=== PATIENT | male | born 1960 | race Caucasian/White ===

== ENCOUNTER 2018-09-12 01:55 | Observation (INO) | payer OTHER ==
[2018-09-12 02:31] LABS: AADO2 Arterial 113.6 mmHg (7.0-24.0); Allen Test ACCEPTAB; Arterial Base Excess 0.8 mmol/L (-3.0-3); Arterial Blood Gas Oxygen Sat 89.7 mmHG (95.0-98.0); Arterial COHb 0.7 % (0.0-3.0); Arterial Fraction of Oxyhgb 89.1 % (93.0-99.0); Arterial HCO3 24.9 mmol/L (22.0-26.0); Arterial MetHb 0 % (0.0-1.5); Arterial pCO2 37.6 mmhg (35-45); MODE NASAL CANNULA; Site Right Radial
[2018-09-12] MEDS: IPRATROPIUM (NEB) 0.5 MG/2.5 ML AMP INH (02:35)
[2018-09-12] MEDS: ALBUTEROL 0.5% (NEB) 2.5 MG/0.5 ML AMP INH (02:36)
[2018-09-12 02:51] LABS: ADD MAN DIFF? NO
[2018-09-12] MEDS: METHYLPREDNISOLONE 125 MG INJ IV ×3 (02:51→18:16)
[2018-09-12] MEDS: SOD CHLORIDE 0.9% 500 ML IV (02:51)
[2018-09-12 02:52] LABS: BASOPHILS % 0.3 % (0.0-2.0); EOSINOPHILS # 0.3 10^3/ul (0.0-0.5); EOSINOPHILS % 2.4 % (0.0-7.0); HEMOGLOBIN 7.2 g/dl (14.0-18.0); LYMPHOCYTES # 4.6 10^3/ul (0.8-2.9); LYMPHOCYTES % 32.5 % (15.0-51.0); MEAN CORPUSCULAR HEMOGLOBIN 30.6 pg (29.0-33.0); MEAN CORPUSCULAR HGB CONC 32.7 g/dl (32.0-37.0); MEAN CORPUSCULAR VOLUME 93.6 fl (82.0-101.0); MEAN PLATELET VOLUME 9.9 fl (7.4-10.4); MONOCYTE # 0.7 10^3/ul (0.3-0.9); MONOCYTES % 5.2 % (0.0-11.0); NEUTROPHIL # 8.3 10^3/ul (1.6-7.5); NEUTROPHILS % 59.1 % (39.0-77.0); PLATELET COUNT 276 10^3/UL (140-415); RED BLOOD COUNT 2.35 10^6/ul (4.70-6.10); RED CELL DISTRIBUTION WIDTH 13.9 % (11.5-14.5)
[2018-09-12 03:11] LABS: INR 0.93; PROTIME 12.5 Sec (11.9-14.9)
[2018-09-12 03:12] LABS: ALANINE AMINOTRANSFERASE 23 IU/L (13-69); ALBUMIN 3.4 g/dl (3.3-4.9); ALBUMIN/GLOBULIN RATIO 1.17; ALKALINE PHOSPHATASE 98 IU/L (42-121); ANION GAP 8 (5-13); ASPARTATE AMINO TRANSFERASE 26 IU/L (15-46); BILIRUBIN,INDIRECT 0.2 mg/dl (0-1.1); BILIRUBIN,TOTAL 0.2 mg/dl (0.2-1.3); BLOOD UREA NITROGEN 40 mg/dl (7-20); CALCIUM 8.4 mg/dl (8.4-10.2); CARBON DIOXIDE 26 mmol/L (21-31); CHLORIDE 107 mmol/L (97-110); CREATININE 2.55 mg/dl (0.61-1.24); Estimated GFR 26 mL/min (>60); GLUCOSE 174 mg/dl (70-220); PARTIAL THROMBOPLASTIN TIME 33.9 Sec (23.0-35.0); POTASSIUM 4.8 mmol/L (3.5-5.1); SODIUM 141 mmol/L (135-144); TOTAL PROTEIN 6.3 g/dl (6.1-8.1)
[2018-09-12 03:25] LABS: B-TYPE NATRIURETIC PEPTIDE 4390 PG/ML (0-125); TROPONIN-I 0.017 ng/ml (0.000-0.120)
[2018-09-12] MEDS ORDERED: AMLODIPINE 5 MG TAB PO (07:00)
[2018-09-12] MEDS ORDERED: GLUCOSE GEL 15 GRAM TUBE PO ×2 (08:00)
[2018-09-12] MEDS ORDERED: DEXTROSE 50% 50 ML SYRINGE IV ×2 (08:00)
[2018-09-12] MEDS ORDERED: GLUCAGON 1 MG INJ IM (08:00)
[2018-09-12] MEDS ORDERED: GLUCOSE GEL 15 GRAM TUBE BUCCAL (08:00)
[2018-09-12] MEDS: AZITHROMYCIN 500MG/NS (PMX) 250 ML IV (08:27)
[2018-09-12] MEDS: CEFTRIAXONE 1 GM/50 ML (PMX) 50 ML IVPB (08:29)
[2018-09-12] MEDS: ASPIRIN 81 MG TAB PO (08:30)
[2018-09-12] MEDS: LOSARTAN 50 MG TAB PO (08:30)
[2018-09-12] MEDS: INSULIN ASPART [NOVOLOG] 3 ML PEN SC ×3 (09:39→17:17)
[2018-09-12 12:59] LABS: IRON 29 ug/dl (35-150)
[2018-09-12 13:08] LABS: % IRON SATURATION 10 % SAT (22-52); TOTAL IRON BINDING CAPACITY 277 ug/dl (241-421)
[2018-09-12 13:16] LABS: FREE T4 (FREE THYROXINE) 1.24 ng/dl (0.64-1.79)
[2018-09-12] MEDS: HEPARIN 5,000 UNIT/1 ML VIAL SC ×2 (14:00→22:04)
[2018-09-12] MEDS ORDERED: HEPARIN 5,000 UNIT/0.5 ML VIAL (14:05)
[2018-09-12] MEDS: LINAGLIPTIN 5 MG TABLET PO (14:08)
[2018-09-12] MEDS: TIOTROPIUM 18 MCG CAPSULE INHA DEV INH (14:09)
[2018-09-12 14:36] LABS: HEMOGLOBIN A1C 7.1 % (0-5.9)
[2018-09-12 14:47] LABS: CREATINE KINASE 271 IU/L (23-200)
[2018-09-12 15:00] LABS: CK INDEX 0.8; CK-MB 2.04 ng/ml (0.0-2.4); TROPONIN-I < 0.012 ng/ml (0.000-0.120)
[2018-09-12] MEDS: ACCU-CHEK XX ×2 (17:18→21:45)
[2018-09-12 17:40] LABS: FOLATE 6.6 ng/ml (2.8-20.0)
[2018-09-12 19:25] LABS: CREATINE KINASE 258 IU/L (23-200)
[2018-09-12 19:39] LABS: CK INDEX 0.7; CK-MB 1.89 ng/ml (0.0-2.4); TROPONIN-I < 0.012 ng/ml (0.000-0.120)
[2018-09-12] MEDS ORDERED: INSULIN GLARGINE [LANTus] (100 UNITS/ML) SYG SC (20:00)
[2018-09-12] MEDS: ALBUTEROL/IPRATROPIUM (NEB) 3 ML AMP NEB (20:20)
[2018-09-12] MEDS ORDERED: INSULIN ASPART [NOVOLOG] 3 ML PEN SC (21:00)
[2018-09-12] MEDS: ATORVASTATIN 20 MG TAB PO (21:46)
[2018-09-12] MEDS: Insulin NOVOLOG SS MODERATE Algorithm(NPO/TPN/ENTERAL FEEDS) SC (22:04)
[2018-09-12] MEDS: INSULIN GLARGINE [LANTus] (100 UNITS/ML) SYG SC (22:05)
[2018-09-13] MEDS: LABETALOL HCL 20MG INJ IV ×2 (00:35→04:18)
[2018-09-13] MEDS: METHYLPREDNISOLONE 125 MG INJ IV ×3 (00:37→11:08)
[2018-09-13] MEDS: Insulin NOVOLOG SS MODERATE Algorithm(NPO/TPN/ENTERAL FEEDS) SC ×4 (00:44→12:12)
[2018-09-13] MEDS: ALBUTEROL/IPRATROPIUM (NEB) 3 ML AMP NEB (00:51)
[2018-09-13] MEDS: ACCU-CHEK XX ×3 (01:03→11:07)
[2018-09-13] MEDS: CEFTRIAXONE 1 GM/50 ML (PMX) 50 ML IVPB (04:19)
[2018-09-13] MEDS: HEPARIN 5,000 UNIT/1 ML VIAL SC (05:33)
[2018-09-13 05:47] LABS: ADD MAN DIFF? NO
[2018-09-13 05:54] LABS: BASOPHILS % 0.1 % (0.0-2.0); HEMATOCRIT 24.1 % (42.0-52.0); HEMOGLOBIN 7.7 g/dl (14.0-18.0); LYMPHOCYTES # 4.1 10^3/ul (0.8-2.9); MEAN CORPUSCULAR HEMOGLOBIN 30.1 pg (29.0-33.0); MEAN CORPUSCULAR VOLUME 94.1 fl (82.0-101.0); MEAN PLATELET VOLUME 11.1 fl (7.4-10.4); MONOCYTE # 0.3 10^3/ul (0.3-0.9); MONOCYTES % 1.6 % (0.0-11.0); NEUTROPHIL # 12.6 10^3/ul (1.6-7.5); NEUTROPHILS % 73.8 % (39.0-77.0); NUCLEATED RED BLOOD CELLS% 0.1 /100WBC (0.0-0.0); PLATELET COUNT 299 10^3/UL (140-415); RED BLOOD COUNT 2.56 10^6/ul (4.70-6.10); RED CELL DISTRIBUTION WIDTH 13.8 % (11.5-14.5)
[2018-09-13 06:12] LABS: ANION GAP 13 (5-13); BLOOD UREA NITROGEN 58 mg/dl (7-20); CARBON DIOXIDE 21 mmol/L (21-31); CHLORIDE 106 mmol/L (97-110); CREATININE 2.85 mg/dl (0.61-1.24); Estimated GFR 23 mL/min (>60); GLUCOSE 158 mg/dl (70-220); MAGNESIUM 2.4 mg/dl (1.7-2.5); PHOSPHORUS 4.1 mg/dl (2.5-4.9); POTASSIUM 4.5 mmol/L (3.5-5.1); SODIUM 140 mmol/L (135-144)
[2018-09-13] MEDS: TIOTROPIUM 18 MCG CAPSULE INHA DEV INH (08:12)
[2018-09-13] MEDS: LINAGLIPTIN 5 MG TABLET PO (08:12)
[2018-09-13] MEDS: LOSARTAN 50 MG TAB PO (08:12)
[2018-09-13] MEDS: ASPIRIN 81 MG TAB PO (08:12)
[2018-09-13] MEDS: FLUTICASONE/VILANTEROL 100-25 INH (08:13)
[2018-09-13] MEDS: AZITHROMYCIN 500MG/NS (PMX) 250 ML IV (09:27)
[2018-09-13] MEDS: FERROUS SULFATE (EC) 325 MG TAB PO (12:09)
[2018-09-13] MEDS ORDERED: METHYLPREDNISOLONE 40 MG INJ IV (20:00)
[2018-09-13] MEDS ORDERED: INSULIN GLARGINE [LANTus] (100 UNITS/ML) SYG SC (20:00)
== END 2018-09-13 13:11 | disposition home or self-care (01) ==
LOC: E/R 01:55 → 6WM 05:37
DX: R06.03 Acute respiratory distress (principal); R09.02 Hypoxemia; J18.9 Pneumonia, unspecified organism; N17.9 Acute kidney failure, unspecified; R07.89 Other chest pain; D64.9 Anemia, unspecified; E11.9 Type 2 diabetes mellitus without complications; I10 Essential (primary) hypertension
CPT/HCPCS: 36600; 71045; 71046; 76775; 80048; 80053; 82550; 82553; 82607; 82728; 82746; 82803; 82962; 83036; 83540; 83605; 83735; 83880; 84100; 84439; 84443; 84484; 85025; 85610; 85730; 87040; 87070; 87400; 89220; 93005; 93306; 94640; 94644; 94667; 94668; G0378

== ENCOUNTER 2018-11-21 05:32 | Inpatient (IN) | payer OTHER ==
[2018-11-21 06:05] LABS: ADD MAN DIFF? NO
[2018-11-21 06:13] LABS: WHITE BLOOD COUNT 16.1 10^3/ul (4.8-10.8)
[2018-11-21 06:13] LABS: BASOPHIL # 0.1 10^3/ul (0.0-0.1); BASOPHILS % 0.3 % (0.0-2.0); EOSINOPHILS # 0.2 10^3/ul (0.0-0.5); EOSINOPHILS % 1.5 % (0.0-7.0); HEMATOCRIT 23.5 % (42.0-52.0); HEMOGLOBIN 7.8 g/dl (14.0-18.0); LYMPHOCYTES # 4.1 10^3/ul (0.8-2.9); LYMPHOCYTES % 25.7 % (15.0-51.0); MEAN CORPUSCULAR HEMOGLOBIN 30.7 pg (29.0-33.0); MEAN CORPUSCULAR HGB CONC 33.2 g/dl (32.0-37.0); MEAN CORPUSCULAR VOLUME 92.5 fl (82.0-101.0); MONOCYTE # 0.8 10^3/ul (0.3-0.9); NEUTROPHIL # 10.8 10^3/ul (1.6-7.5); NEUTROPHILS % 66.8 % (39.0-77.0); PLATELET COUNT 248 10^3/UL (140-415); RED BLOOD COUNT 2.54 10^6/ul (4.70-6.10); RED CELL DISTRIBUTION WIDTH 13.6 % (11.5-14.5)
[2018-11-21] MEDS: METHYLPREDNISOLONE 125 MG INJ IV ×3 (06:24→17:40)
[2018-11-21] MEDS: ASPIRIN 81 MG TAB PO (06:25)
[2018-11-21] MEDS: AZITHROMYCIN 500MG/NS (PMX) 250 ML IVPB (06:25)
[2018-11-21 06:30] LABS: ANION GAP 10 (5-13); BLOOD UREA NITROGEN 46 mg/dl (7-20); CALCIUM 9.1 mg/dl (8.4-10.2); CARBON DIOXIDE 23 mmol/L (21-31); CHLORIDE 107 mmol/L (97-110); CREATININE 2.85 mg/dl (0.61-1.24); Estimated GFR 23 mL/min (>60); GLUCOSE 248 mg/dl (70-220); POTASSIUM 4.9 mmol/L (3.5-5.1); SODIUM 140 mmol/L (135-144)
[2018-11-21 06:42] LABS: B-TYPE NATRIURETIC PEPTIDE 9510 PG/ML (0-125); TROPONIN-I 0.027 ng/ml (0.000-0.120)
[2018-11-21] MEDS: ALBUTEROL 0.083% (NEB) 2.5 MG/3 ML AMP NEB (06:49)
[2018-11-21] MEDS: IPRATROPIUM (NEB) 0.5 MG/2.5 ML AMP NEB (06:49)
[2018-11-21] MEDS ORDERED: ACETAMINOPHEN 325 MG TAB PO ×2 (08:00→10:30)
[2018-11-21] MEDS ORDERED: ONDANSETRON 4 MG INJ IV ×2 (08:00→10:30)
[2018-11-21 08:12] LABS: AADO2 Arterial 626.3 mmHg (7.0-24.0); Allen Test ACCEPTAB; Arterial Base Excess -5.9 mmol/L (-3.0-3); Arterial Blood Gas Oxygen Sat 85.7 mmHG (95.0-98.0); Arterial COHb 0.3 % (0.0-3.0); Arterial Fraction of Oxyhgb 85.1 % (93.0-99.0); Arterial HCO3 18.5 mmol/L (22.0-26.0); Arterial MetHb 0.4 % (0.0-1.5); Arterial pCO2 32.3 mmhg (35-45); MODE HFNC
[2018-11-21] MEDS: FUROSEMIDE 40 MG INJ IV (08:27)
[2018-11-21] MEDS: SOD CHLORIDE 0.9% 0 ML IV (09:15)
[2018-11-21 09:20] LABS: IRON 35 ug/dl (35-150)
[2018-11-21 09:21] LABS: D-DIMER 696.26 ng/ml (<460)
[2018-11-21 09:29] LABS: % IRON SATURATION 13 % SAT (22-52); TOTAL IRON BINDING CAPACITY 267 ug/dl (241-421)
[2018-11-21] MEDS ORDERED: NACL 0.9% 3 ML SYG IV (10:30)
[2018-11-21] MEDS ORDERED: DOCUSATE SODIUM 100 MG CAP PO (10:30)
[2018-11-21] MEDS ORDERED: NON-FORMULARY/PATIENT OWN MED (Sitagliptin Phos/Metformin HCl (Janumet 50-1,000 mg Tablet) PO (10:30)
[2018-11-21] MEDS ORDERED: ZOLPIDEM 5 MG TAB PO (10:30)
[2018-11-21] MEDS ORDERED: GLUCOSE GEL 15 GRAM TUBE BUCCAL (11:00)
[2018-11-21] MEDS ORDERED: DEXTROSE 50% 50 ML SYRINGE IV ×2 (11:00)
[2018-11-21] MEDS ORDERED: GLUCAGON 1 MG INJ IM (11:00)
[2018-11-21] MEDS ORDERED: GLUCOSE GEL 15 GRAM TUBE PO ×2 (11:00)
[2018-11-21] MEDS: AMLODIPINE 10 MG TAB PO (11:01)
[2018-11-21] MEDS: LOSARTAN 50 MG TAB PO (11:02)
[2018-11-21] MEDS: FAMOTIDINE 20 MG TAB PO ×2 (11:06→21:00)
[2018-11-21] MEDS: AZITHROMYCIN 250 MG TAB PO (11:06)
[2018-11-21] MEDS: ASPIRIN (EC) 81 MG TAB PO (11:06)
[2018-11-21] MEDS: ENOXAPARIN 40 MG/0.4 ML SYG SC (11:20)
[2018-11-21] MEDS: INSULIN ASPART [NOVOLOG] 3 ML PEN SC ×2 (11:34→17:46)
[2018-11-21 11:58] LABS: IMMEDIATE SPIN CROSSMATCH 1 2
[2018-11-21] MEDS: ALBUTEROL/IPRATROPIUM (NEB) 3 ML AMP HHN ×3 (12:35→21:10)
[2018-11-21] MEDS: TIOTROPIUM 18 MCG CAPSULE INHA DEV INH (16:30)
[2018-11-21] MEDS: FLUTICASONE/VILANTEROL 100-25 INH (16:30)
[2018-11-21 19:48] LABS: GLUCOSE 470 mg/dl (70-220)
[2018-11-21] MEDS: Insulin NOVOLOG SS MODERATE Algorithm(NPO/TPN/ENTERAL FEEDS) SC (20:52)
[2018-11-21] MEDS: INSULIN GLARGINE [LANTus] (100 UNITS/ML) SYG SC (20:52)
[2018-11-21] MEDS: SOD CHLORIDE 0.45% 1,000 ML IV (21:00)
[2018-11-21] MEDS ORDERED: INSULIN ASPART [NOVOLOG] 3 ML PEN SC (21:00)
[2018-11-21] MEDS: DIAZEPAM 5 MG TAB PO (21:01)
[2018-11-22] MEDS: ALBUTEROL/IPRATROPIUM (NEB) 3 ML AMP HHN ×3 (01:00→13:45)
[2018-11-22] MEDS: Insulin NOVOLOG SS MODERATE Algorithm(NPO/TPN/ENTERAL FEEDS) SC ×4 (01:30→12:02)
[2018-11-22] MEDS: SOD CHLORIDE 0.45% 1,000 ML IV ×2 (04:59→12:26)
[2018-11-22] MEDS: METHYLPREDNISOLONE 125 MG INJ IV ×3 (05:44→11:57)
[2018-11-22 06:26] LABS: ADD MAN DIFF? NO
[2018-11-22 06:30] LABS: WHITE BLOOD COUNT 16.1 10^3/ul (4.8-10.8)
[2018-11-22 06:30] LABS: BASOPHILS % 0.1 % (0.0-2.0); HEMATOCRIT 27.5 % (42.0-52.0); HEMOGLOBIN 9.2 g/dl (14.0-18.0); LYMPHOCYTES # 3.2 10^3/ul (0.8-2.9); LYMPHOCYTES % 19.7 % (15.0-51.0); MEAN CORPUSCULAR HGB CONC 33.5 g/dl (32.0-37.0); MEAN CORPUSCULAR VOLUME 89.6 fl (82.0-101.0); MEAN PLATELET VOLUME 11.5 fl (7.4-10.4); MONOCYTE # 0.6 10^3/ul (0.3-0.9); MONOCYTES % 3.5 % (0.0-11.0); NEUTROPHIL # 12.3 10^3/ul (1.6-7.5); NEUTROPHILS % 76.3 % (39.0-77.0); PLATELET COUNT 223 10^3/UL (140-415); RED BLOOD COUNT 3.07 10^6/ul (4.70-6.10); RED CELL DISTRIBUTION WIDTH 14.2 % (11.5-14.5)
[2018-11-22 06:52] LABS: HEMOGLOBIN A1C 7.2 % (0-5.9)
[2018-11-22 08:20] LABS: ANION GAP 10 (5-13); BLOOD UREA NITROGEN 61 mg/dl (7-20); CALCIUM 8.9 mg/dl (8.4-10.2); CARBON DIOXIDE 20 mmol/L (21-31); CHLORIDE 110 mmol/L (97-110); CREATININE 3.23 mg/dl (0.61-1.24); Estimated GFR 20 mL/min (>60); GLUCOSE 281 mg/dl (70-220); POTASSIUM 4.8 mmol/L (3.5-5.1); SODIUM 140 mmol/L (135-144)
[2018-11-22 08:34] LABS: AADO2 Arterial 29.8 mmHg (7.0-24.0); Allen Test ACCEPTAB; Arterial Base Excess -4.7 mmol/L (-3.0-3); Arterial Blood Gas Oxygen Sat 95.2 mmHG (95.0-98.0); Arterial COHb 0.3 % (0.0-3.0); Arterial Fraction of Oxyhgb 94.6 % (93.0-99.0); Arterial HCO3 19.2 mmol/L (22.0-26.0); Arterial MetHb 0.3 % (0.0-1.5); Arterial pCO2 31.4 mmhg (35-45); MODE ROOM AIR; Site Left Radial
[2018-11-22] MEDS: TIOTROPIUM 18 MCG CAPSULE INHA DEV INH (08:57)
[2018-11-22] MEDS: FLUTICASONE/VILANTEROL 100-25 INH (08:58)
[2018-11-22] MEDS: AZITHROMYCIN 250 MG TAB PO (09:02)
[2018-11-22] MEDS: ASPIRIN (EC) 81 MG TAB PO (09:02)
[2018-11-22] MEDS: AMLODIPINE 10 MG TAB PO (09:02)
[2018-11-22] MEDS: FAMOTIDINE 20 MG TAB PO (09:02)
[2018-11-22] MEDS: LOSARTAN 50 MG TAB PO (09:03)
[2018-11-22] MEDS: ENOXAPARIN 40 MG/0.4 ML SYG SC (09:08)
[2018-11-22] MEDS: INSULIN ASP PROT/ASPART (70/30) PEN SC (09:08)
[2018-11-22] MEDS: INFLUENZA VIRUS VACCINE 0.5 ML (DISPENSING) IM* (09:09)
== END 2018-11-22 15:10 | disposition home or self-care (01) | DRG 190 ==
LOC: E/R 05:32 → TEL 07:53
PROC: 30233N1 Transfusion of Nonautologous Red Blood Cells into Peripheral Vein, Percutaneous Approach (ICD-10-PCS; principal; 2018-11-21)
DX: J44.1 Chronic obstructive pulmonary disease with (acute) exacerbation (principal); J96.01 Acute respiratory failure with hypoxia; I13.0 Hypertensive heart and chronic kidney disease with heart failure and stage 1 through stage 4 chronic kidney disease, or unspecified chronic kidney disease; I50.30 Unspecified diastolic (congestive) heart failure; N18.3 Chronic kidney disease, stage 3 (moderate); E78.5 Hyperlipidemia, unspecified; F17.200 Nicotine dependence, unspecified, uncomplicated; D63.1 Anemia in chronic kidney disease
CPT/HCPCS: 36415; 36430; 36600; 71045; 80048; 82803; 82947; 82962; 83036; 83540; 83880; 84484; 85025; 85378; 86850; 86900; 86901; 86920; 90686; 93005; 94640; 94664; 96374; 96375; 99291-25

== ENCOUNTER 2019-01-10 19:11 | Emergency (ER) | payer OTHER ==
[2019-01-10 20:22] LABS: WHITE BLOOD COUNT 11.5 10^3/ul (4.8-10.8)
[2019-01-10 20:22] LABS: ABNORMAL IP MESSAGE 1; HEMATOCRIT 27.3 % (42.0-52.0); HEMOGLOBIN 9.1 g/dl (14.0-18.0); MEAN CORPUSCULAR HEMOGLOBIN 30.4 pg (29.0-33.0); MEAN CORPUSCULAR HGB CONC 33.3 g/dl (32.0-37.0); MEAN CORPUSCULAR VOLUME 91.3 fl (82.0-101.0); MEAN PLATELET VOLUME 10.7 fl (7.4-10.4); PLATELET COUNT 277 10^3/UL (140-415); POSITIVE DIFF @See below; RED BLOOD COUNT 2.99 10^6/ul (4.70-6.10); RED CELL DISTRIBUTION WIDTH 14.5 % (11.5-14.5)
[2019-01-10 20:34] LABS: ANION GAP 10 (5-13); BLOOD UREA NITROGEN 50 mg/dl (7-20); CALCIUM 9.3 mg/dl (8.4-10.2); CARBON DIOXIDE 23 mmol/L (21-31); CHLORIDE 110 mmol/L (97-110); CREATININE 3.22 mg/dl (0.61-1.24); Estimated GFR 20 mL/min (>60); GLUCOSE 112 mg/dl (70-220); POTASSIUM 4.6 mmol/L (3.5-5.1); SODIUM 143 mmol/L (135-144)
[2019-01-10 20:36] LABS: MODE ROOM AIR; MetHgb Venous 0.1 %; Sample Type Blood venous; Site VENOUS LINE; Venous COHb 0.3 %; Venous Fraction OxyHgb 66.9 %; Venous Oxygen Sat 67.2 mmHG (55.0-75.0)
[2019-01-10 20:40] LABS: ADD MAN DIFF? YES
[2019-01-10 20:45] LABS: B-TYPE NATRIURETIC PEPTIDE 6990 PG/ML (0-125); TROPONIN-I 0.015 ng/ml (0.000-0.120)
[2019-01-10 22:09] LABS: BAND NEUTROPHILS #M 0.1 10^3/ul (0.0-0.6); BAND NEUTROPHILS % (M) 1 % (0-4); EOSINOPHILS % (M) 1 % (0-7); LYMPHOCYTES #M 3.4 10^3/ul (0.8-2.9); LYMPHOCYTES % (M) 30 % (15-51); MONOCYTE #M 0.4 10^3/ul (0.3-0.9); MONOCYTES % (M) 4 % (0-11); PLATELET ESTIMATE NORMAL; SEG NEUT #M 7.4 10^3/ul (1.6-7.5); SEGMENTED NEUTROPHILS (M) % 64 % (39-77); SMUDGE%M 53 % (0-0)
== END 2019-01-10 21:44 | disposition left against medical advice (07) ==
LOC: E/R 19:11
DX: R06.02 Shortness of breath (principal); R07.9 Chest pain, unspecified; J44.9 Chronic obstructive pulmonary disease, unspecified; Z79.4 Long term (current) use of insulin; Z79.82 Long term (current) use of aspirin; Z87.891 Personal history of nicotine dependence
CPT/HCPCS: 36415; 71045; 80048; 82803; 83880; 84484; 85025; 93005; 99285-25

== ENCOUNTER 2019-05-21 09:01 | Emergency (ER) | payer OTHER ==
[2019-05-21] MEDS: ASPIRIN 325 MG TAB PO (09:28)
[2019-05-21] MEDS: NITROGLYCERIN 2% 1 GM OINT PKT TD (09:29)
[2019-05-21 09:33] LABS: ADD MAN DIFF? NO
[2019-05-21 09:40] LABS: BASOPHILS % 0.3 % (0.0-2.0); EOSINOPHILS # 0.3 10^3/ul (0.0-0.5); EOSINOPHILS % 2.2 % (0.0-7.0); HEMATOCRIT 23.7 % (42.0-52.0); HEMOGLOBIN 7.7 g/dl (14.0-18.0); LYMPHOCYTES # 4.6 10^3/ul (0.8-2.9); LYMPHOCYTES % 38.1 % (15.0-51.0); MEAN CORPUSCULAR HEMOGLOBIN 31.4 pg (29.0-33.0); MEAN CORPUSCULAR HGB CONC 32.5 g/dl (32.0-37.0); MEAN CORPUSCULAR VOLUME 96.7 fl (82.0-101.0); MEAN PLATELET VOLUME 10.5 fl (7.4-10.4); MONOCYTE # 0.7 10^3/ul (0.3-0.9); MONOCYTES % 6.1 % (0.0-11.0); NEUTROPHIL # 6.4 10^3/ul (1.6-7.5); PLATELET COUNT 236 10^3/UL (140-415); RED BLOOD COUNT 2.45 10^6/ul (4.70-6.10); RED CELL DISTRIBUTION WIDTH 13.5 % (11.5-14.5)
[2019-05-21 09:40] LABS: WHITE BLOOD COUNT 12.1 10^3/ul (4.8-10.8)
[2019-05-21 09:52] LABS: ALANINE AMINOTRANSFERASE 25 IU/L (13-69); ALBUMIN 3.4 g/dl (3.3-4.9); ALBUMIN/GLOBULIN RATIO 1.13; ALKALINE PHOSPHATASE 87 IU/L (42-121); ANION GAP 6 (5-13); ASPARTATE AMINO TRANSFERASE 25 IU/L (15-46); BILIRUBIN,INDIRECT 0.5 mg/dl (0-1.1); BILIRUBIN,TOTAL 0.5 mg/dl (0.2-1.3); BLOOD UREA NITROGEN 38 mg/dl (7-20); CARBON DIOXIDE 28 mmol/L (21-31); CHLORIDE 107 mmol/L (97-110); CREATININE 3.05 mg/dl (0.61-1.24); Estimated GFR 21 mL/min (>60); GLUCOSE 162 mg/dl (70-220); SODIUM 141 mmol/L (135-144); TOTAL PROTEIN 6.4 g/dl (6.1-8.1)
[2019-05-21 10:03] LABS: TROPONIN-I < 0.012 ng/ml (0.000-0.120)
== END 2019-05-21 10:41 | disposition left against medical advice (07) ==
LOC: E/R 09:01
DX: D64.9 Anemia, unspecified (principal); N28.9 Disorder of kidney and ureter, unspecified; J44.9 Chronic obstructive pulmonary disease, unspecified; F17.210 Nicotine dependence, cigarettes, uncomplicated; Z79.4 Long term (current) use of insulin; Z79.82 Long term (current) use of aspirin
CPT/HCPCS: 36415; 71045; 80053; 84484; 85025; 93005; 99285-25

== ENCOUNTER 2019-06-11 10:07 | Inpatient (IN) | payer OTHER ==
[2019-06-11] MEDS ORDERED: GLUCOSE GEL 15 GRAM TUBE BUCCAL (18:00)
[2019-06-11] MEDS ORDERED: GLUCAGON 1 MG INJ IM (18:00)
[2019-06-11] MEDS ORDERED: DOCUSATE SODIUM 100 MG CAP PO (18:00)
[2019-06-11] MEDS ORDERED: NACL 0.9% 3 ML SYG IV (18:00)
[2019-06-11] MEDS ORDERED: MAGNESIUM HYDROXIDE 30ML CUP PO (18:00)
[2019-06-11] MEDS ORDERED: DEXTROSE 50% 50 ML SYRINGE IV ×2 (18:00)
[2019-06-11] MEDS ORDERED: NITROGLYCERIN (SL) 0.4 MG TAB SL (18:00)
[2019-06-11] MEDS ORDERED: GLUCOSE GEL 15 GRAM TUBE PO ×2 (18:00)
[2019-06-11] MEDS: INSULIN ASPART [NOVOLOG] 3 ML PEN SC ×5 (18:00→22:02)
[2019-06-11] MEDS ORDERED: ONDANSETRON 4 MG INJ IV (18:00)
[2019-06-11] MEDS ORDERED: BISACODYL 10 MG SUPP PR (18:00)
[2019-06-11] MEDS ORDERED: ALBUTEROL/IPRATROPIUM (NEB) 3 ML AMP HHN (19:00)
[2019-06-11] MEDS: ACETAMINOPHEN 325 MG TAB PO (20:23)
[2019-06-11] MEDS: INSULIN GLARGINE [LANTus] (100 UNITS/ML) SYG SC (22:02)
[2019-06-12] MEDS: ALBUTEROL/IPRATROPIUM (NEB) 3 ML AMP HHN ×3 (00:58→15:32)
[2019-06-12] MEDS: ACCU-CHEK XX (02:00)
[2019-06-12] MEDS: PANTOPRAZOLE 40 MG INJ IV (05:24)
[2019-06-12] MEDS: INSULIN ASPART [NOVOLOG] 3 ML PEN SC ×9 (07:39→20:16)
[2019-06-12] MEDS: FERROUS SULFATE (EC) 325 MG TAB PO (09:31)
[2019-06-12] MEDS: FLUTICASONE/VILANTEROL 100-25 INH (09:31)
[2019-06-12] MEDS: TIOTROPIUM 18 MCG CAPSULE INHA DEV INH (09:31)
[2019-06-12] MEDS ORDERED: FUROSEMIDE 40 MG INJ (13:04)
[2019-06-12] MEDS: FUROSEMIDE 40 MG INJ IV ×2 (13:07→17:02)
[2019-06-12] MEDS: hydrALAzine 20 MG INJ IV (17:04)
[2019-06-12] MEDS: INSULIN GLARGINE [LANTus] (100 UNITS/ML) SYG SC (20:00)
[2019-06-13] MEDS: ACCU-CHEK XX (02:00)
[2019-06-13] MEDS: PANTOPRAZOLE (EC) 40 MG TAB PO (05:35)
[2019-06-13] MEDS: INSULIN ASPART [NOVOLOG] 3 ML PEN SC ×7 (07:37→21:00)
[2019-06-13] MEDS: TIOTROPIUM 18 MCG CAPSULE INHA DEV INH (08:13)
[2019-06-13] MEDS: FLUTICASONE/VILANTEROL 100-25 INH (08:16)
[2019-06-13] MEDS: ALBUTEROL/IPRATROPIUM (NEB) 3 ML AMP HHN ×3 (08:20→17:27)
[2019-06-13] MEDS: FERROUS SULFATE (EC) 325 MG TAB PO (09:00)
[2019-06-13] MEDS: LOSARTAN 50 MG TAB PO (09:00)
[2019-06-13] MEDS: AMLODIPINE 5 MG TAB PO (09:00)
[2019-06-13] MEDS: SOD CHLORIDE 0.9% 250 ML IV* (13:52)
[2019-06-13] MEDS: PEG/ELECTROLYTES 4L BTL PO (17:20)
[2019-06-13] MEDS: BISACODYL (EC) 5 MG TAB PO (17:20)
[2019-06-13] MEDS: INSULIN GLARGINE [LANTus] (100 UNITS/ML) SYG SC (21:47)
[2019-06-14] MEDS: ALBUTEROL/IPRATROPIUM (NEB) 3 ML AMP HHN ×4 (00:13→23:17)
[2019-06-14] MEDS: ACCU-CHEK XX (02:00)
[2019-06-14] MEDS: PEG/ELECTROLYTES 4L BTL PO (05:27)
[2019-06-14] MEDS: BISACODYL (EC) 5 MG TAB PO (05:27)
[2019-06-14] MEDS: PANTOPRAZOLE (EC) 40 MG TAB PO ×3 (05:31→20:30)
[2019-06-14] MEDS: INSULIN ASPART [NOVOLOG] 3 ML PEN SC ×7 (08:00→20:23)
[2019-06-14] MEDS: FLUTICASONE/VILANTEROL 100-25 INH (08:34)
[2019-06-14] MEDS: FERROUS SULFATE (EC) 325 MG TAB PO (08:35)
[2019-06-14] MEDS: TIOTROPIUM 18 MCG CAPSULE INHA DEV INH (08:38)
[2019-06-14] MEDS ORDERED: LABETALOL HCL 20MG INJ (16:18)
[2019-06-14] MEDS ORDERED: LABETALOL HCL 20MG INJ IV (17:00)
[2019-06-14] MEDS ORDERED: hydrALAzine 20 MG INJ IV (17:00)
[2019-06-14] MEDS ORDERED: PROPOFOL 20 ML ×2 (17:04→18:09)
[2019-06-14] MEDS ORDERED: hydrALAzine 20 MG INJ (17:14)
[2019-06-14] MEDS ORDERED: FENTAnyl 50 MCG/ML VIAL (17:28)
[2019-06-14] MEDS: SUCRALFATE (100 MG/ML) 10ML CUP PO ×3 (18:55→20:30)
[2019-06-14] MEDS: INSULIN GLARGINE [LANTus] (100 UNITS/ML) SYG SC (20:00)
[2019-06-15] MEDS: ACCU-CHEK XX (02:00)
[2019-06-15] MEDS: INSULIN ASPART [NOVOLOG] 3 ML PEN SC ×7 (07:51→21:00)
[2019-06-15] MEDS: ALBUTEROL/IPRATROPIUM (NEB) 3 ML AMP HHN ×2 (08:00→16:00)
[2019-06-15] MEDS: FLUTICASONE/VILANTEROL 100-25 INH (08:51)
[2019-06-15] MEDS: PANTOPRAZOLE (EC) 40 MG TAB PO ×2 (08:52→21:00)
[2019-06-15] MEDS: FERROUS SULFATE (EC) 325 MG TAB PO (08:52)
[2019-06-15] MEDS: TIOTROPIUM 18 MCG CAPSULE INHA DEV INH (08:52)
[2019-06-15] MEDS: SUCRALFATE (100 MG/ML) 10ML CUP PO ×4 (08:52→21:00)
[2019-06-15] MEDS: hydrALAzine 20 MG INJ IV ×3 (20:30→21:14)
[2019-06-16] MEDS: ALBUTEROL/IPRATROPIUM (NEB) 3 ML AMP HHN
[2019-06-16] MEDS: INSULIN GLARGINE [LANTus] (100 UNITS/ML) SYG SC (00:08)
[2019-06-16] MEDS: ACCU-CHEK XX (02:00)
== END 2019-06-16 06:45 | disposition home or self-care (01) | DRG 811 ==
LOC: E/R 10:07 → 6WM 12:24
PROC: 30233N1 Transfusion of Nonautologous Red Blood Cells into Peripheral Vein, Percutaneous Approach (ICD-10-PCS; principal; 2019-06-14 14:45)
PROC: 0W3P8ZZ Control Bleeding in Gastrointestinal Tract, Via Natural or Artificial Opening Endoscopic (ICD-10-PCS; 2019-06-14 14:45)
PROC: 0DBK8ZZ Excision of Ascending Colon, Via Natural or Artificial Opening Endoscopic (ICD-10-PCS; 2019-06-14 14:45)
PROC: 0DB38ZX Excision of Lower Esophagus, Via Natural or Artificial Opening Endoscopic, Diagnostic (ICD-10-PCS; 2019-06-14 14:45)
PROC: 0DB68ZX Excision of Stomach, Via Natural or Artificial Opening Endoscopic, Diagnostic (ICD-10-PCS; 2019-06-14 14:45)
PROC: 0DJD8ZZ Inspection of Lower Intestinal Tract, Via Natural or Artificial Opening Endoscopic (ICD-10-PCS; 2019-06-14 14:45)
DX: D62 Acute posthemorrhagic anemia (principal); K31.811 Angiodysplasia of stomach and duodenum with bleeding; N17.9 Acute kidney failure, unspecified; N18.4 Chronic kidney disease, stage 4 (severe); I12.9 Hypertensive chronic kidney disease with stage 1 through stage 4 chronic kidney disease, or unspecified chronic kidney disease; E11.22 Type 2 diabetes mellitus with diabetic chronic kidney disease; K20.9 Esophagitis, unspecified; K29.70 Gastritis, unspecified, without bleeding; J44.9 Chronic obstructive pulmonary disease, unspecified; E78.5 Hyperlipidemia, unspecified; K63.5 Polyp of colon; E11.21 Type 2 diabetes mellitus with diabetic nephropathy; K64.8 Other hemorrhoids; Z91.19 Patient's noncompliance with other medical treatment and regimen; Z79.4 Long term (current) use of insulin; Z79.82 Long term (current) use of aspirin; Z87.891 Personal history of nicotine dependence
CPT/HCPCS: 36415; 36430; 71045; 80048; 80053; 81001; 82270; 82550; 82570; 82728; 82962; 83036; 83540; 83735; 84100; 84155; 84156; 84165; 84166; 84439; 84443; 84484; 84560; 85014; 85018; 85025; 85045; 85610; 85730; 86644; 86850; 86860; 86870; 86880; 86885; 86900; 86901; 86902; 86906; 86920; 86970; 86971; 86978; 87040-91; 88305; 93005; 93306; 94640; 94664; 99285-25